=== PATIENT | female | born 1965 | race Asian ===

== ENCOUNTER 2017-08-19 17:34 | Emergency (ER) | payer SELFPAY ==
[~2017-08-19] VITALS: Ht 152.4 cm; Wt 51.4 kg
[2017-08-19] MEDS ORDERED: LISI-661 PO (17:38)
[2017-08-19] MEDS ORDERED: AMLO-511 PO (17:38)
[2017-08-19 18:32] VITALS: BP 124/72
== END 2017-08-19 18:47 | disposition home or self-care (01) ==
LOC: EMS 17:37
DX: J11.1 Influenza due to unidentified influenza virus with other respiratory manifestations (principal); I10 Essential (primary) hypertension
CPT/HCPCS: 99283

== ENCOUNTER → 2024-06-17 | Emergency (ER) | payer SELFPAY ==
[~2024-06-17] VITALS: Ht 149.9 cm; Wt 50.5 kg
[~2024-06-17] MED LIST: AMLO-257 PO; AMLO10TA55 PO; ERYT3.5O8 OU; LISI-893 PO; LOSA-381 PO
[2024-06-17 14:35] VITALS: TEMP 98.5
[2024-06-17 15:24] VITALS: BP 122/79; PULSE 65; RESP 18; O2SAT 100
== END | disposition still patient (30) ==
LOC: EMS 14:28
DX: H16.203 Unspecified keratoconjunctivitis, bilateral (principal); I10 Essential (primary) hypertension
CPT/HCPCS: 99282; 99283